=== PATIENT | male | born 1945 | race Caucasian/White ===

== ENCOUNTER 2020-10-05 08:07 | Observation (INO) ==
[2020-10-05] MEDS ORDERED: Aspirin 81 MG TAB.CHEW PO ONE (08:23)
[2020-10-05 08:49] LABS: Basophils # 0.1 K/mcL (0.0-0.2); Basophils % 0.8 %; Eosinophils # 0.1 K/mcL (0.0-0.6); Eosinophils % 1.4 %; Hemoglobin 13.4 g/dL (12.9-16.9); Immature Granulocytes % 0.5 % (0-4); Lymphocytes # 2.4 K/mcL (0.6-4.6); Lymphocytes % 31.1 %; Mean Corpuscular HGB Conc 33.5 g/dL (31.6-35.5); Mean Corpuscular Hemoglobin 32.1 pg (28.0-33.3); Mean Corpuscular Volume 95.7 fL (83.0-100.0); Mean Platelet Volume 10.4 fL (9.4-12.4); Monocytes # 0.7 K/mcL (0.0-1.3); Monocytes % 9.3 %; Neutrophils # 4.4 K/mcL (1.6-8.9); Platelet Count 213 K/mcL (140-400); Red Blood Count 4.18 M/mcL (4.19-5.50); Red Cell Distribution Width 13.3 % (11.5-14.5); Segmented Neutrophils % 56.9 %; White Blood Count 7.7 K/mcL (4.3-11.1)
[2020-10-05 08:57] LABS: INR 1.2; Prothrombin Time 13.4 Seconds (9.4-12.1)
[2020-10-05 09:00] LABS: Activated Partial Thrombo Time 29.9 Seconds (26.0-36.0)
[2020-10-05 09:40] LABS: BUN/Creatinine Ratio 14 (6-26); Blood Urea Nitrogen 22 mg/dL (8-23); Carbon Dioxide 23 mEq/L (23-29); Chloride 107 mEq/L (98-107); Glucose 109 mg/dL (70-105); Osmolality,Calculated 298 (280-300); Sodium 142 mEq/L (136-145); Troponin I < 0.03 ng/mL (< 0.04); eGFR For African Americans 52 (> 60); eGFR For Non-African Americans 43 (> 60)
[2020-10-05] MEDS ORDERED: Ondansetron ODT 4 MG TAB.RAPDIS SL PRN (10:20)
[2020-10-05] MEDS ORDERED: Acetaminophen 325 MG TABLET PO PRN (10:20)
[2020-10-05 12:11] LABS: Cholesterol 107 mg/dL (< 200); HDL Cholesterol 36 mg/dL (40-59); LDL Cholesterol,Calculated 47 mg/dL (< 100); Triglycerides 122 mg/dL (< 150); Troponin I < 0.03 ng/mL (< 0.04)
[2020-10-06] MEDS ORDERED: Regadenoson 0.4 MG/5 ML SYRINGE IVP ONE (06:55)
[2020-10-06 07:02] LABS: Calcium 8.7 mg/dL (8.6-10.3); Potassium 4.1 mEq/L (3.5-5.1)
[2020-10-06 08:43] VITALS: BP 161/88
[2020-10-06] MEDS ORDERED: hydroCHLOROthiazide 25 MG TABLET PO SCH (09:00)
[2020-10-06] MEDS ORDERED: allopurinoL 300 MG TABLET PO SCH (09:00)
[2020-10-06] MEDS ORDERED: Aspirin 81 MG TAB.CHEW PO SCH (09:00)
== END 2020-10-06 12:16 | disposition home or self-care (01) ==
LOC: 3BNU 08:07 → EMEROOARM 08:07 → SUATTDRO 11:48 → 3BNU 12:29
PROVIDERS: ADMIT Internal Medicine; ATTEND Registered Nurse